=== PATIENT | female | born 1975 | race Two or more races ===

== ENCOUNTER → 2018-04-24 | Outpatient (CLI) | payer BC ==
[~2018-04-24] MED LIST: IOHEXOL 300 MG/ML 100ML VIAL. IV ONE; LORA10TA68 PO; MONT10TA49 PO; RANI-376 PO; VENTOLIN HFA18 GM INH
--- NOTE | 2018-04-24 14:14 | KCIC ---
PQRS Compliance Statement: One or more of the following individualized dose reduction techniques were utilized for this examination: 1. Automated exposure control 2. Adjustment of the mA and/or kV according to patient size 3. Use of iterative reconstruction technique CT ABDOMEN WO/W CONTRAST Clinical Indication: Liver cyst seen on echocardiogram. Comparison: None. TECHNIQUE: Helical CT imaging of the abdomen is performed before and after 100 cc of Omnipaque 300 IV contrast. Findings: The lung bases are clear. The cardiac size is normal. The liver is homogeneous. The spleen, gallbladder, pancreas, adrenal glands, kidneys, and abdominal aorta are normal. A portal systemic collateral vein is noted left of midline in the upper abdomen. Stomach is mostly decompressed. No dilated small bowel. There is no colon wall thickening. No mesenteric adenopathy. Bilateral L5 spondylolysis. There is nonacute mild anterior wedging of the T11 vertebral body. IMPRESSION: No acute abdominal abnormality. No liver lesion. Electronically signed by: Alo Gunn MD (04/24/2018 2:09 PM) [id number]
== END | disposition home or self-care (01) ==
LOC: KCIC CT 08:33
PROVIDERS: ATTEND Family Medicine
DX: M43.06 Spondylolysis, lumbar region (principal)
CPT/HCPCS: 74170; Q9967